=== PATIENT | female | born 1955 | race Caucasian/White ===

== ENCOUNTER → 2020-11-19 | Outpatient (CLI) | payer BC, OTHER ==
--- NOTE | 2020-11-19 14:00 | KCIC ---
Examination: MRI of the right knee without contrast HISTORY: History of chronic right knee pain COMPARISON: None available TECHNIQUE: Multiplanar, multisequence MR imaging of the right knee was performed without contrast. FINDINGS: The anterior cruciate, posterior cruciate ligament appears intact. There is subtle blunting of the ju nction of the anterior horn of the body of the medial meniscus could be a small degenerative tear. Th e lateral meniscus appears intact. The medial collateral ligament is intact. The lateral collateral l igamentous complex including the fibular collateral ligament, biceps femoris tendon, popliteus tendon appears intact. There is mild increased T2 signal identified in the popliteus muscle at the musculot endinous junction could be strain. The extensor mechanism is intact. There is deep fissuring of cartilage identified in the patellofemor al compartment with small subchondral cystic changes likely grade III chondromalacia. Small knee join t effusion. The medial, lateral retinaculum appears intact. There is mild superficial fraying of cartilage identified in the medial, lateral compartments. Modera te joint space loss identified in the medial, lateral, patellofemoral compartments. IMPRESSION: 1. Mild increased T2 signal identified in the popliteus muscle at the musculotendinous junction could be strain. 2.Subtle blunting of the junction of the anterior horn of the body of the medial meniscus could be a small degenerative tear. 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 4.Small knee joint effusion. Electronically signed by: Issac Queen MD (11/19/2020 10:14 AM) [id number]
== END ==
LOC: KCIC MRI 08:23
PROVIDERS: ATTEND Orthopaedic Surgery
DX: M25.461 Effusion, right knee (principal); M94.261 Chondromalacia, right knee
CPT/HCPCS: 73721